=== PATIENT | male | born 1990 | race Caucasian/White ===

== ENCOUNTER 2016-05-12 15:46 | Inpatient (IN) | payer OTHER ==
[~2016-05-12] VITALS: Ht 177.8 cm; Wt 93.0 kg
[2016-05-12] MEDS ORDERED: MoRPHine SULFATE 4 MG/ML 1 ML CARP\\VIAL IV STA ×2 (16:14→18:18)
[2016-05-12] MEDS ORDERED: ONDANSETRON INJ 2 MG/ML 2 ML VIAL IV STA (16:14)
[2016-05-12] MEDS ORDERED: CLINDAMYCIN 600 MG/54 ML D5W IV ONE (16:15)
[2016-05-12] MEDS ORDERED: SODIUM CHLORIDE 0.9% 1000ML 1,000 ML IV ONE (16:15)
[2016-05-12] MEDS ORDERED: CLINDAMYCIN IV 600 MG in DEXTROSE 5% ADD-VANTAGE 50ML 50 ML IV SCH (16:30)
[2016-05-12] MEDS ORDERED: OPTIRAY 320 IV PRN (16:30)
[2016-05-12 17:04] LABS: BLOOD UREA NITROGEN 17 mg/dl (7-18); BUN/CREATININE RATIO 15.8 (10-20); CALCIUM 9.8 mg/dl (8.5-10.1); CARBON DIOXIDE 25 mmol/L (21-32); CHLORIDE 102 mmol/L (98-107); GLUCOSE 104 mg/dl (70-99); SODIUM 137 mmol/L (136-145)
[2016-05-12 17:19] LABS: BASO % 0.2 %; BASO ABS # 0.02 K/uL (0-0.2); COMPLETE YES; EOS % 0.2 %; HEMATOCRIT 41.6 % (42-52); IG% 0.3 %; LYMPH % 13.9 %; LYMPH ABS # 1.42 K/uL (1.2-3.4); MEAN CELL VOLUME 82.2 fL (80-100); MEAN CORPUSCULAR HEMOGLOBIN 29.2 pg (25-34); MEAN CORPUSCULAR HGB CONC 35.6 g/dl (32-36); MEAN PLATELET VOLUME 9.2 fL (7.4-10.4); MONO % 10.2 %; NEUT % 75.2 %; PLATELET COUNT 333 K/uL (130-400); RED BLOOD COUNT 5.06 M/uL (4.7-6.1); WHITE BLOOD COUNT 10.18 K/uL (4.8-10.8)
--- NOTE | 2016-05-12 18:00 | DIAGNOSTIC IMAGING REPORT ---
CT FACIAL-MAXILLOFACIAL WITH CT DOSE: 748.72 mGy.cm CLINICAL HISTORY: Dental pain. Fever. TECHNIQUE: Helical axial images of the face were obtained following intravenous injection of 116 cc of Optiray 320 IV. Sagittal and coronal reconstructions were reviewed as well as maximal intensity projections on an independent 3-D workstation. COMPARISON STUDY: None. FINDINGS: Visualized portions of the intracranial contents are unremarkable. The epiglottis is normal. There are several mildly enlarged right-sided cervical lymph nodes. An index right level 1 Lymph node measures 1.2 cm in short axis diameter. There is right anterior facial infiltration. Note is made of a cavity of the right maxillary canine (ADA tooth 6). There is an associated small peripherally enhancing collection that measures 1.2 x 0.5 cm along the right anterior aspect of the maxilla and system with an abscess. In addition, there is lucency within the adjacent alveolar ridge of the right anterior aspect of the maxilla with apparent bony erosion into the right maxillary sinus. There is peripheral enhancement within the right maxillary sinus which is nearly completely opacified. There is also moderate mucosal thickening of the right ethmoid and frontal sinuses and mild mucosal thickening of the right sphenoid sinus. Orbits are unremarkable. Major vasculature of the neck the neck is patent. IMPRESSION: Cavity of the right maxillary canine with associated 1.2 cm x 0.5 cm abscess along the right anterior aspect of the maxilla with associated cellulitis. In addition, erosion possibly reflecting osteomyelitis of the adjacent alveolar ridge with extension into the right maxillary sinus which is largely opacified with peripheral enhancement. The findings suggest extension of the infectious process into the right maxillary sinus which is largely opacified. In addition, there is moderate mucosal thickening of the right ethmoid and frontal sinuses. Electronically signed by: Cleveland Cifuentes M.D. 05/12/2016 5:57 PM Dictated Date/Time: 05/12/2016 5:44 PM
--- NOTE | 2016-05-12 19:17 | EMERGENCY ROOM VISIT NOTE ---
ED Visit Note First contact with patient: 15:53 Chief Complaint: Infected tooth. History of Present Illness: Mr. Lezama is a 25-year-old white male who ambulates into the ED accompanied by his mother complaining of a possible dental infection. Historically patient reports he has a redundant right maxillary cuspid tooth. Intermittently over many years C reports she developed pain and possible infection in the area. He is typically seen and prescribed antibiotics and pain goes away. He reports he does not follow-up with dentistry for definitive care and treatment. Patient goes on reports that he started experiencing right maxillary dental pain approximately 1.5 weeks ago. Since that time his pain has been constant and gradually increasing in intensity. He describes the pain as a sharp and pressure sensation. He rates his discomfort 8/10. He reports radiation of this pain up into the right maxillary sinus and into the right side of his head. He has not identified any aggravating or alleviating factors related to the pain. He has been using [id number] ibuprofen and acetaminophen every 4 hours without relief of his discomfort and he also reports he has been using penicillin that was given tone for his last infection without relief of his discomfort. Associated with his pain last night he noted some mild blurry vision, tearing from the right eye, sensations of feeling feverish last night that was associated with chills and sweats. He denies dizziness, lightheadedness, hearing changes, sore throat, difficulty swallowing, voice changes, neck pain/stiffness, chest pain, shortness of breath , abdominal pain, decreased appetite, nausea, vomiting, facial swelling. Review of Systems: As noted above in history of present illness. All body systems were reviewed and found to be negative as noted above. Past Medical History: As previously noted. Current Medications: Patient denies. Allergies to Medications: Patient denies. Patient denies. Social History: Patient is not currently employed; he feels safe in his home environment; he admits to tobacco and alcohol use. Physical Examination: Vital Signs: Date Time Temp Pulse Resp B/P Pulse Ox O2 Delivery O2 Flow Rate FiO2 05/12/16 18:10 85 18 125/73 100 Room Air 05/12/16 15:50 36.9 98 18 114/80 98 Room Air GENERAL: 25-year-old male in moderate distress due to pain, nontoxic-appearing, afebrile and hemodynamically stable. NEUROLOGICAL: Awake, alert and oriented to person, place and time. Answering questions appropriately and following commands. Normal gait. Good hand eye coordination. No focal motor sensory deficits. Cranial nerves II through XII grossly intact. Good short-term and long-term recall. Normal rapid movements of the hand. Negative pronator drift test. SKIN: Warm, dry and pink. No facial soft tissue eruptions or trauma noted. HEENT: Atraumatic and normocephalic. No facial swelling noted. Moderate tenderness over the right maxillary sinus without erythema or edema. External ears are nontender. Auditory canals are pink and patent. Tympanic membranes are pearly urena with normal light reflex. PERRLA. EOMI without nystagmus. No light sensitivity. Sclera white and conjunctiva pink without drainage. No drainage from naris. Oral cavity moist and pink. Orally patient does have a redundant tooth as noted previously. 3 of the teeth in this area are discolored without significant signs of decay. There is local gingiva is mildly erythematous and edematous. There is no palpable abscesses. Pharynx is nonerythematous or edematous. Speech normal. No lymphadenopathy. Trachea midline. No jugular venous distention. BACK: No tenderness over the bony spine. Full range of motion of the cervical spine. THORAX: Lungs sounds are clear to auscultation and equal bilaterally with symmetrical chest wall. No wheezing, rales or rhonchi. No crepitus, tenderness , subcutaneous air or deformities noted. HEART: Regular rate and rhythm. No gallops, rubs or murmurs are appreciated. ABDOMEN: Flat, soft and nontender. Positive bowel sounds in all quadrants. No guarding, rigidity or organomegaly. EXTREMITIES: Moves all extremities well on command and with purpose. All distal neurovascular statuses are intact and equal bilaterally. ED Course: Patient is assessed as noted above. Laboratory Testing: Test 05/12/16 16:40 05/12/16 17:11 Range/Units Sodium Level 137 136-145 mmol/L Potassium Level 4.0 3.5-5.1 mmol/L Chloride Level 102 98-107 mmol/L Carbon Dioxide Level 25 21-32 mmol/L Anion Gap 10.0 3-11 mmol/L Blood Urea Nitrogen 17 7-18 mg/dl Creatinine 1.10 0.60-1.40 mg/dl Estimated GFR () 106.1 Estimated GFR (Non- 91.5 BUN/Creatinine Ratio 15.8 10-20 Random Glucose 104 70-99 mg/dl Calcium Level 9.8 8.5-10.1 mg/dl White Blood Count 10.18 4.8-10.8 K/uL Red Blood Count 5.06 4.7-6.1 M/uL Hemoglobin 14.8 14.0-18.0 g/dL Hematocrit 41.6 42-52 % Mean Corpuscular Volume 82.2 80-100 fL Mean Corpuscular Hemoglobin 29.2 25-34 pg Mean Corpuscular Hemoglobin Concent 35.6 32-36 g/dl Platelet Count 333 130-400 K/uL Mean Platelet Volume 9.2 7.4-10.4 fL Neutrophils (%) (Auto) 75.2 % Lymphocytes (%) (Auto) 13.9 % Monocytes (%) (Auto) 10.2 % Eosinophils (%) (Auto) 0.2 % Basophils (%) (Auto) 0.2 % Neutrophils # (Auto) 7.65 1.4-6.5 K/uL Lymphocytes # (Auto) 1.42 1.2-3.4 K/uL Monocytes # (Auto) 1.04 0.11-0.59 K/uL Eosinophils # (Auto) 0.02 0-0.5 K/uL Basophils # (Auto) 0.02 0-0.2 K/uL RDW Standard Deviation 38.6 36.4-46.3 fL RDW Coefficient of Variation 12.8 11.5-14.5 % Immature Granulocyte % (Auto) 0.3 % Immature Granulocyte # (Auto) 0.03 0.00-0.02 K/uL IV Contrast Facial CT: Was reviewed by myself and read by the radiologist and shows cavity of the right maxillary canine with associated abscess and cellulitis. Additionally noted that there are road and reflecting of probable osteomyelitis of the adjacent alveoli ridge with extension into the right maxillary sinus. Additionally there was moderate mucosal thickening of the right ethmoid and frontal sinuses. Patient was hydrated with normal saline, he received a total of 8 mg of morphine IV for pain, 4 mg of Zofran IV and 600 mg of clindamycin IV for his symptoms. Patient was reassessed multiple times during his stay in the emergency department. Patient's case was reviewed with Dr. Jarquin; we agreed on diagnostic approach, treatment, disposition and plan. Patient's case was consulted with case management and Dr. Gonsalez, hospitalist, for medical observation/admission. Patient was educated about tonight's findings; he agreed to be brought in the hospital for observation/admission. Clinical Impression: Dental abscess with possible osteomyelitis. Decision-Making: Initially my differential diagnosis I consider dental abscess, dental cavity, gingivitis, sinusitis, otitis media, otitis externa and other causes. Disposition and Plan: Patient be brought in the hospital for observation/ admission by Dr. Gonsalez; please see his notes and orders for final disposition and plan.
[2016-05-12] MEDS ORDERED: MoRPHine SULFATE 2 MG/ML CARP IV PRN (19:45)
[2016-05-12] MEDS ORDERED: ONDANSETRON INJ 2 MG/ML 2 ML VIAL IV PRN (19:45)
[2016-05-12 20:00] VITALS: O2SAT 99
--- NOTE | 2016-05-12 20:14 | Medical Student: [facility] ---
Med Student History & Physical Date & Time of Service: May 12, 2016 at 19:54 Chief Complaint: Infected Tooth Primary Care Physician: No Doctor, Assigned History of Present Illness Source: patient Oz Lezama is a 25 year old male with a history of recurrent dental infections who presented to the ED today for two weeks of gradually worsening upper R dental pain and R maxillary pain. He took some of his friend's leftover penicillin twice daily for 3 days with the last dose 4-5 days ago, as well as some of his friend's Percocet for the pain. Last night he started feeling feverish and had sweats, which prompted him to come to the ED. He states he has required Abx for dental infections multiple times in the past. 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 He has not been tested for HIV or Hepatitis. Social History Smoking Status: Current Every Day Smoker Smokeless Tobacco Use: Yes (Former chewing tobacco use, no current use. ) Drug Use: heroin Marital Status: single Housing status: lives with family Occupational Status: unemployed Allergies Coded Allergies: No Known Allergies (Unverified , 09/13/15) Medications No Active Prescriptions or Reported Meds Review of Systems He denies any ear pain, throat pain, rash, chest pain, dyspnea, nausea, vomiting , abd pain, or diarrhea. 10 point ROS reviewed and otherwise negative except as per HPI. Physical Exam Vital Signs (24 Hours) Date Time Temp Pulse Resp B/P Pulse Ox O2 Delivery O2 Flow Rate FiO2 05/12/16 18:10 85 18 125/73 100 Room Air 05/12/16 15:50 36.9 98 18 114/80 98 Room Air General Appearance: WD/WN, + mild distress Head: normocephalic, atraumatic Eyes: PERRL, EOMI, sclerae normal ENT: TMs normal, pharynx normal, + pertinent finding (Overall poor dentition. Redundant R maxillary tooth as well as adjacent R maxillary tooth with black dental carries. The teeth and gums are tender to palpation and appear erythematous. No obvious fluctuance. R maxillary sinus is tender to palpation, but again no obvious fluctuance. R maxillary area is warm to the touch compared to the L. ) Neck: supple, trachea midline Respiratory/Chest: lungs clear, normal breath sounds, no respiratory distress, no accessory muscle use Cardiovascular: regular rate, rhythm, no gallop, no murmur, normal peripheral pulses Abdomen/GI: non tender, soft Neurologic/Psych: groover runner II-XII nml as tested, no motor/sensory deficits, alert, normal mood/affect, normal reflexes, oriented x 3 Skin: normal color, warm/dry, no rash Diagnostics Laboratory Results Results Past 24 Hours Test 05/12/16 16:40 05/12/16 17:11 Range/Units Sodium Level 137 136-145 mmol/L Potassium Level 4.0 3.5-5.1 mmol/L Chloride Level 102 98-107 mmol/L Carbon Dioxide Level 25 21-32 mmol/L Anion Gap 10.0 3-11 mmol/L Blood Urea Nitrogen 17 7-18 mg/dl Creatinine 1.10 0.60-1.40 mg/dl Estimated GFR () 106.1 Estimated GFR (Non- 91.5 BUN/Creatinine Ratio 15.8 10-20 Random Glucose 104 70-99 mg/dl Calcium Level 9.8 8.5-10.1 mg/dl White Blood Count 10.18 4.8-10.8 K/uL Red Blood Count 5.06 4.7-6.1 M/uL Hemoglobin 14.8 14.0-18.0 g/dL Hematocrit 41.6 42-52 % Mean Corpuscular Volume 82.2 80-100 fL Mean Corpuscular Hemoglobin 29.2 25-34 pg Mean Corpuscular Hemoglobin Concent 35.6 32-36 g/dl Platelet Count 333 130-400 K/uL Mean Platelet Volume 9.2 7.4-10.4 fL Neutrophils (%) (Auto) 75.2 % Lymphocytes (%) (Auto) 13.9 % Monocytes (%) (Auto) 10.2 % Eosinophils (%) (Auto) 0.2 % Basophils (%) (Auto) 0.2 % Neutrophils # (Auto) 7.65 1.4-6.5 K/uL Lymphocytes # (Auto) 1.42 1.2-3.4 K/uL Monocytes # (Auto) 1.04 0.11-0.59 K/uL Eosinophils # (Auto) 0.02 0-0.5 K/uL Basophils # (Auto) 0.02 0-0.2 K/uL RDW Standard Deviation 38.6 36.4-46.3 fL RDW Coefficient of Variation 12.8 11.5-14.5 % Immature Granulocyte % (Auto) 0.3 % Immature Granulocyte # (Auto) 0.03 0.00-0.02 K/uL Diagnostic Radiology CT FACIAL-MAXILLOFACIAL WITH CT DOSE: 748.72 mGy.cm CLINICAL HISTORY: Dental pain. Fever. TECHNIQUE: Helical axial images of the face were obtained following intravenous injection of 116 cc of Optiray 320 IV. Sagittal and coronal reconstructions were reviewed as well as maximal intensity projections on an independent 3-D workstation. COMPARISON STUDY: None. FINDINGS: Visualized portions of the intracranial contents are unremarkable. The epiglottis is normal. There are several mildly enlarged right-sided cervical lymph nodes. An index right level 1 Lymph node measures 1.2 cm in short axis diameter. There is right anterior facial infiltration. Note is made of a cavity of the right maxillary canine (ADA tooth 6). There is an associated small peripherally enhancing collection that measures 1.2 x 0.5 cm along the right anterior aspect of the maxilla and system with an abscess. In addition, there is lucency within the adjacent alveolar ridge of the right anterior aspect of the maxilla with apparent bony erosion into the right maxillary sinus. There is peripheral enhancement within the right maxillary sinus which is nearly completely opacified. There is also moderate mucosal thickening of the right ethmoid and frontal sinuses and mild mucosal thickening of the right sphenoid sinus. Orbits are unremarkable. Major vasculature of the neck the neck is patent. IMPRESSION: Cavity of the right maxillary canine with associated 1.2 cm x 0.5 cm abscess along the right anterior aspect of the maxilla with associated cellulitis. In addition, erosion possibly reflecting osteomyelitis of the adjacent alveolar ridge with extension into the right maxillary sinus which is largely opacified with peripheral enhancement. The findings suggest extension of the infectious process into the right maxillary sinus which is largely opacified. In addition, there is moderate mucosal thickening of the right ethmoid and frontal sinuses. Electronically signed by: Cleveland Cifuentes M.D. 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 He is afebrile here with no leukocytosis. BP is stable. Pt received one dose of IV clindamycin in the ED. - Will continue IV clindamycin and add IV ampicillin-sulbactam for increased anaerobic coverage. - Will consult oral surgery regarding possible surgical drainage. - Continue morphine 4 mg q4h prn for pain as well as Tylenol - Continue Zofran prn for nausea. - Pt can eat tonight, but NPO after midnight in case surgery tomorrow. - Will consider HIV and hepatitis testing while the pt is admitted.
[2016-05-12 20:26] VITALS: BP 122/79; PULSE 88; TEMP 36.8; Ht 177.8 cm; Wt 93.0 kg
--- NOTE | 2016-05-12 20:27 | History and Physical ---
History & Physical Date & Time of Service: May 12, 2016 at 20:15 Chief Complaint: Infected Tooth Primary Care Physician: No Doctor, Assigned History of Present Illness Source: patient, hospital records 25 year old male with a history of recurrent dental infections who presented to the ED today for two weeks of gradually worsening upper R dental pain and R maxillary pain. He took some of his friend's leftover penicillin twice daily for 3 days with the last dose 4-5 days ago, as well as some of his friend's Percocet for the pain. Last night he started feeling feverish and had sweats, which prompted him to come to the ED. He states he has required Abx for dental infections multiple times in the past. He has been recommended to follow up in the past for dental infections and possible tooth extraction but never followed up. He denies any rashes, chest pain, shortness of breath. Currently feels much better in terms of pain after two dose of Morphine 4mg in the ED. He received a dose of Clindamycin 600mg IV. Discussed admission to hospital and consultation with oral surgeon, he is on board with plan. Past Medical/Surgical History Current IV heroin abuse, most recent injection was this morning H/o recurrent tooth infections that have cleared with oral antibiotics Family History no reported family history, reviewed Social History Smoking Status: Current Every Day Smoker Smokeless Tobacco Use: No (used to chew) Drug Use: heroin (last used today) Marital Status: single Housing status: lives with family Occupational Status: unemployed Multi-Drug Resistant Organisms History of MDRO: No Allergies Coded Allergies: No Known Allergies (Unverified , 09/13/15) Home Medications No Active Prescriptions or Reported Meds Review of Systems Constitutional: + chills, + fever, + sweats, No fatigue, No weakness, No weight loss Eyes: No diplopia, No discharge, No eye pain, No problem reported, No redness, No worsening of vision ENT: + dental problems (multiple caries, currently with severe pain over right maxillary canine, swelling, redness), No hearing loss, No nasal symptoms, No sore throat, No tinnitus, No trouble swallowing, No unusual epistaxis Respiratory: No cough, No dyspnea at rest, No dyspnea on exertion, No hemoptysis, No problem reported, No shortness of breath, No sputum, No wheezing Cardiovascular: No PND, No chest pain, No claudication, No edema, No orthopnea , No palpitations, No problem reported Abdomen: No GI bleeding, No constipation, No diarrhea, No nausea, No pain, No problem reported, No vomiting Musculoskeletal: No calf pain, No joint pain, No muscle pain, No problem reported, No swelling Genitourinary - Male: No dysuria, No hematuria, No urinary frequency, No urinary urgency Neurologic: No balance problems, No memory loss, No numbness/tingling, No paralysis, No problem reported, No vertigo, No weakness Psychiatric: No anhedonism, No anxiety, No depression symptoms, No insomnia, No problem reported, No substance abuse Endocrine: No excessive thirst, No excessive urination, No fatigue, No problem reported Hematologic / Lymphatic: No abnormal bleeding/bruising, No clotting problems, No night sweats, No problem reported, No swollen lymph nodes Integumentary: No bleeding, No color change, No itch, No new/changing skin lesions, No problem reported, No rash Allergic / Immunologic: No environmental allergies, No food allergies, No frequent infections, No hives, No pet sensitivities, No poor healing, No problem reported, No prolonged convalescence, No seasonal allergies Physical Exam Vital Signs Date Time Temp Pulse Resp B/P Pulse Ox O2 Delivery O2 Flow Rate FiO2 05/12/16 20:00 79 18 124/83 99 05/12/16 18:10 85 18 125/73 100 Room Air 05/12/16 15:50 36.9 98 18 114/80 98 Room Air General Appearance: WD/WN, no apparent distress Head: normocephalic, atraumatic Eyes: normal inspection, PERRL, EOMI, sclerae normal ENT: hearing grossly normal, TMs normal, pharynx normal, + pertinent finding ( right maxillary canine, failure to completely descend, obvious caries with swelling of gums, redness, tenderness) Neck: supple, no adenopathy, no JVD, trachea midline Respiratory/Chest: chest non-tender, lungs clear, normal breath sounds, no respiratory distress, no accessory muscle use Cardiovascular: regular rate, rhythm, no edema, no gallop, no JVD, no murmur, normal peripheral pulses Abdomen/GI: normal bowel sounds, non tender, soft, no organomegaly Back: normal inspection, no CVA tenderness, no muscle spasm, normal range of motion Extremities/Musculoskelatal: normal inspection, no calf tenderness, normal capillary refill, no pedal edema, normal range of motion Neurologic/Psych: connie cleaner II-XII nml as tested, no motor/sensory deficits, alert, normal mood/affect, normal reflexes, oriented x 3 Skin: normal color, warm/dry, + pertinent finding (numerous track locke on arms ) Lymphatic: no adenopathy Diagnostics Laboratory Results Results Past 24 Hours Test 05/12/16 16:40 05/12/16 17:11 Range/Units Sodium Level 137 136-145 mmol/L Potassium Level 4.0 3.5-5.1 mmol/L Chloride Level 102 98-107 mmol/L Carbon Dioxide Level 25 21-32 mmol/L Anion Gap 10.0 3-11 mmol/L Blood Urea Nitrogen 17 7-18 mg/dl Creatinine 1.10 0.60-1.40 mg/dl Estimated GFR () 106.1 Estimated GFR (Non- 91.5 BUN/Creatinine Ratio 15.8 10-20 Random Glucose 104 70-99 mg/dl Calcium Level 9.8 8.5-10.1 mg/dl White Blood Count 10.18 4.8-10.8 K/uL Red Blood Count 5.06 4.7-6.1 M/uL Hemoglobin 14.8 14.0-18.0 g/dL Hematocrit 41.6 42-52 % Mean Corpuscular Volume 82.2 80-100 fL Mean Corpuscular Hemoglobin 29.2 25-34 pg Mean Corpuscular Hemoglobin Concent 35.6 32-36 g/dl Platelet Count 333 130-400 K/uL Mean Platelet Volume 9.2 7.4-10.4 fL Neutrophils (%) (Auto) 75.2 % Lymphocytes (%) (Auto) 13.9 % Monocytes (%) (Auto) 10.2 % Eosinophils (%) (Auto) 0.2 % Basophils (%) (Auto) 0.2 % Neutrophils # (Auto) 7.65 1.4-6.5 K/uL Lymphocytes # (Auto) 1.42 1.2-3.4 K/uL Monocytes # (Auto) 1.04 0.11-0.59 K/uL Eosinophils # (Auto) 0.02 0-0.5 K/uL Basophils # (Auto) 0.02 0-0.2 K/uL RDW Standard Deviation 38.6 36.4-46.3 fL RDW Coefficient of Variation 12.8 11.5-14.5 % Immature Granulocyte % (Auto) 0.3 % Immature Granulocyte # (Auto) 0.03 0.00-0.02 K/uL Diagnostic Radiology CT FACIAL-MAXILLOFACIAL WITH CLINICAL HISTORY: Dental pain. Fever. FINDINGS: Visualized portions of the intracranial contents are unremarkable. The epiglottis is normal. There are several mildly enlarged right-sided cervical lymph nodes. An index right level 1 Lymph node measures 1.2 cm in short axis diameter. There is right anterior facial infiltration. Note is made of a cavity of the right maxillary canine (ADA tooth 6). There is an associated small peripherally enhancing collection that measures 1.2 x 0.5 cm along the right anterior aspect of the maxilla and system with an abscess. In addition, there is lucency within the adjacent alveolar ridge of the right anterior aspect of the maxilla with apparent bony erosion into the right maxillary sinus. There is peripheral enhancement within the right maxillary sinus which is nearly completely opacified. There is also moderate mucosal thickening of the right ethmoid and frontal sinuses and mild mucosal thickening of the right sphenoid sinus. Orbits are unremarkable. Major vasculature of the neck the neck is patent. IMPRESSION: Cavity of the right maxillary canine with associated 1.2 cm x 0.5 cm abscess along the right anterior aspect of the maxilla with associated cellulitis. In addition, erosion possibly reflecting osteomyelitis of the adjacent alveolar ridge with extension into the right maxillary sinus which is largely opacified with peripheral enhancement. The findings suggest extension of the infectious process into the right maxillary sinus which is largely opacified. In addition, there is moderate mucosal thickening of the right ethmoid and frontal sinuses. Impression Assessment and Plan 25 yo male IV Heroin user who presents with right maxillary abscess of tooth with associated cellulitis, possible osteomyelitis - Right maxillary tooth abscess with cellulitis and possible osteomyelitis Clindamycin and Unasyn IV, check blood cultures (were done after he received Clindamycin in ED) consult oral surgery for recommendations of surgery vs just IV antibiotics Morphine for pain control, Tylenol for fevers allow to eat, NPO after midnight - Heroin abuse: has never been tested for HIV or hepatitis in the past, not interested currently counseled on importance of stopping, has been to rehab in the past started using again due to stressful family situation Level of Care Med/Surg Resuscitation Status FULL RESUSCITATION VTE Prophylaxis VTE Risk Assessment Done? Y/N: Yes Risk Level: Low Given or contraindicated: Treatment not indicated
[2016-05-12] MEDS: ACETAMINOPHEN 325 MG TAB PO PRN (21:09)
[2016-05-12] MEDS: AMPICILLIN/SULBACTAM SOD INJ 3,000 MG in SODIUM CHLORIDE 0.9% 100ML 100 ML IV SCH (21:16)
[2016-05-12] MEDS: MoRPHine SULFATE 4 MG/ML 1 ML CARP\\VIAL IV PRN (22:34)
[2016-05-12 23:15] VITALS: BP 103/64; PULSE 90; TEMP 36.6; O2SAT 97
[2016-05-13] MEDS: CLINDAMYCIN IV 900 MG in DEXTROSE 5% ADD-VANTAGE 100ML 100 ML IV SCH ×3 (01:54→17:06)
[2016-05-13] MEDS: AMPICILLIN/SULBACTAM SOD INJ 3,000 MG in SODIUM CHLORIDE 0.9% 100ML 100 ML IV SCH ×3 (03:50→15:20)
[2016-05-13] MEDS: MoRPHine SULFATE 4 MG/ML 1 ML CARP\\VIAL IV PRN ×3 (03:55→12:26)
[2016-05-13 06:07] LABS: BASO % 0.4 %; BASO ABS # 0.03 K/uL (0-0.2); COMPLETE YES; EOS % 2.6 %; HEMATOCRIT 36.1 % (42-52); IG% 0.1 %; LYMPH % 23.6 %; LYMPH ABS # 1.81 K/uL (1.2-3.4); MEAN CELL VOLUME 82.6 fL (80-100); MEAN CORPUSCULAR HEMOGLOBIN 28.8 pg (25-34); MEAN CORPUSCULAR HGB CONC 34.9 g/dl (32-36); MEAN PLATELET VOLUME 9.3 fL (7.4-10.4); MONO % 14.3 %; PLATELET COUNT 279 K/uL (130-400); RED BLOOD COUNT 4.37 M/uL (4.7-6.1); WHITE BLOOD COUNT 7.67 K/uL (4.8-10.8)
[2016-05-13 06:34] LABS: BUN/CREATININE RATIO 18.9 (10-20); CALCIUM 8.7 mg/dl (8.5-10.1); CREATININE 0.93 mg/dl (0.60-1.40); POTASSIUM 4.2 mmol/L (3.5-5.1)
[2016-05-13] MEDS: ACETAMINOPHEN 325 MG TAB PO PRN ×2 (07:44→12:27)
[2016-05-13 07:45] VITALS: BP 112/73; PULSE 85; TEMP 36.6; O2SAT 98
[2016-05-13] MEDS ORDERED: HYDROmorphone INJ 1 MG/ML SYR IV PRN (12:45)
[2016-05-13] MEDS ORDERED: HYDROmorphone INJ 0.5 MG/0.5 ML SYR IV PRN (12:45)
[2016-05-13] MEDS ORDERED: HYDROmorphone INJ 0.5 MG/0.5 ML SYR IV STA (12:45)
--- NOTE | 2016-05-13 14:52 | Progress Note ---
Subjective Date of Service: May 13, 2016. Subjective pt has pain and redness near additional tooth in right upper mandible. concern for abscess and possible osteomyelitis Review of Systems Constitutional: + fatigue, + weakness, No chills, No fever ENT: + dental problems (gingival erythema and tenderness upper mandible on right) Respiratory: No cough, No shortness of breath Cardiac: No chest pain, No edema Abdomen: No diarrhea, No nausea, No pain, No vomiting Psychiatric: No anhedonism, No depression symptoms Objective Vital Signs Date Time Temp Pulse Resp B/P Pulse Ox O2 Delivery O2 Flow Rate FiO2 05/12/16 23:48 Room Air 05/12/16 23:15 36.6 90 18 103/64 97 Room Air 05/12/16 22:28 Room Air 05/12/16 20:26 36.8 88 16 122/79 Room Air 05/12/16 20:00 79 18 124/83 99 05/12/16 18:10 85 18 125/73 100 Room Air 05/12/16 15:50 36.9 98 18 114/80 98 Room Air Physical Exam General Appearance: WD/WN, + moderate distress ENT: + pertinent finding (periodontal infection) Neck: supple, no JVD Respiratory/Chest: chest non-tender, lungs clear, normal breath sounds Cardiovascular: regular rate, rhythm, no murmur Abdomen: normal bowel sounds, non tender, soft Neurologic/Psychiatric: alert, oriented x 3 Laboratory Results Last 24 Hours Test 05/12/16 16:40 05/12/16 17:11 05/13/16 05:43 Sodium Level 137 mmol/L 138 mmol/L Potassium Level 4.0 mmol/L 4.2 mmol/L Chloride Level 102 mmol/L 103 mmol/L Carbon Dioxide Level 25 mmol/L 26 mmol/L Anion Gap 10.0 mmol/L 9.0 mmol/L Blood Urea Nitrogen 17 mg/dl 18 mg/dl Creatinine 1.10 mg/dl 0.93 mg/dl Estimated GFR () 106.1 129.9 Estimated GFR (Non- 91.5 112.1 BUN/Creatinine Ratio 15.8 18.9 Random Glucose 104 mg/dl 88 mg/dl Calcium Level 9.8 mg/dl 8.7 mg/dl White Blood Count 10.18 K/uL 7.67 K/uL Red Blood Count 5.06 M/uL 4.37 M/uL Hemoglobin 14.8 g/dL 12.6 g/dL Hematocrit 41.6 % 36.1 % Mean Corpuscular Volume 82.2 fL 82.6 fL Mean Corpuscular Hemoglobin 29.2 pg 28.8 pg Mean Corpuscular Hemoglobin Concent 35.6 g/dl 34.9 g/dl Platelet Count 333 K/uL 279 K/uL Mean Platelet Volume 9.2 fL 9.3 fL Neutrophils (%) (Auto) 75.2 % 59.0 % Lymphocytes (%) (Auto) 13.9 % 23.6 % Monocytes (%) (Auto) 10.2 % 14.3 % Eosinophils (%) (Auto) 0.2 % 2.6 % Basophils (%) (Auto) 0.2 % 0.4 % Neutrophils # (Auto) 7.65 K/uL 4.52 K/uL Lymphocytes # (Auto) 1.42 K/uL 1.81 K/uL Monocytes # (Auto) 1.04 K/uL 1.10 K/uL Eosinophils # (Auto) 0.02 K/uL 0.20 K/uL Basophils # (Auto) 0.02 K/uL 0.03 K/uL RDW Standard Deviation 38.6 fL 39.2 fL RDW Coefficient of Variation 12.8 % 12.9 % Immature Granulocyte % (Auto) 0.3 % 0.1 % Immature Granulocyte # (Auto) 0.03 K/uL 0.01 K/uL Est Creatinine Clear Calc Drug Dose 136.7 ml/min Assessment and Plan 25 yo male IV Heroin with right maxillary abscess of tooth, possible osteomyelitis - Right maxillary tooth abscess with cellulitis and possible osteomyelitis Clindamycin and Unasyn IV, consult oral surgery for evaluation dialudid for pain control, Tylenol for fevers - Heroin abuse: has never been tested for HIV or hepatitis in the past, Admitting team states he is not interested currently they counseled him on the importance of stopping.
[2016-05-13 14:57] VITALS: BP 143/77; PULSE 77; TEMP 36.8; O2SAT 96
[2016-05-13] MEDS ORDERED: AMOX875T PO (16:04)
--- NOTE | 2016-05-13 16:06 | Discharge Instructions ---
Discharge Instructions Admission Reason for Admission: Acute Osteomyelitis Of Maxilla Discharge Discharge Diagnosis / Problem: dental abscess Discharge Goals Goal(s): Diagnostic testing, Therapeutic intervention Activity Recommendations Activity Limitations: resume your previous activity . Instructions / Follow-Up Instructions / Follow-Up Dr Winters and Dr Land will be calling to extract your tooth before the weekend [phone] consider soft foods, tylenol or ibuprofen for pain Current Hospital Diet Patient's current hospital diet: Regular Diet Discharge Diet Recommended Diet: Regular Diet Pending Studies Studies pending at discharge: yes List of pending studies: blood cultures Medical Emergencies . Who to Call and When: Medical Emergencies: If at any time you feel your situation is an emergency, please call 911 immediately. . Non-Emergent Contact Non-Emergency issues call your: Specialist (oral surgeon) . . "Provider Documentation" section prepared by Wallace Solorio. VTE Core Measure Inpt VTE Proph given/why not?: Treatment not indicated
[2016-05-13] MEDS ORDERED: OXYC7.5T65 PO (17:43)
[2016-05-13 18:40] VITALS: BP 143/77; PULSE 77; TEMP 36.8; O2SAT 96
--- NOTE | 2016-05-15 14:26 | Discharge Summary ---
Discharge Summary Admission Date: May 12, 2016 at 19:41 Discharge Date: May 13, 2016 Discharge Disposition: Home Principal Diagnosis: periodontal abscess Medication Reconciliation New Medications: Amoxicillin & Pot Clavulanate (Augmentin 875-125 mg) 1 Tab Tab 875 MG PO BID, #20 TAB Oxycodone/Acetaminophen 7.5MG/325MG (Percocet 7.5MG/325MG) Tab 1 TAB PO Q4H PRN for Pain, #20 TAB Discharge Exam Review of Systems: Constitutional: + weakness, No chills, No fever ENT: + dental problems Respiratory: No cough, No sputum Cardiovascular: No chest pain, No orthopnea Abdomen: No nausea, No pain Musculoskeletal: No joint pain, No muscle pain Physical Exam: General Appearance: WD/WN, + mild distress Eyes: PERRL, EOMI ENT: + pertinent finding (has accessory tooth in right upper maxilla just posterior to canine, some gum redness and swelling) Respiratory/Chest: chest non-tender, lungs clear, normal breath sounds Cardiovascular: regular rate, rhythm, no murmur Hospital Course 25 yo male IV Heroin with right maxillary abscess of tooth, - Right maxillary tooth abscess with cellulitis and possible osteomyelitis Clindamycin and Unasyn IV, improved, I discussed the case with Dr Winters, who reviewed the films from his office, he will be kind enough to have pt come to office for tooth extraction and abscess drainage - Heroin abuse: has never been tested for HIV or hepatitis in the past, Admitting team states he is not interested currently they counseled him on the importance of stopping. Total Time Spent: Greater than 30 minutes This includes examination of the patient, discharge planning, medication reconciliation, and communication with other providers. Discharge Instructions Please refer to the electronic Patient Visit Report (Discharge Instructions) for additional information.
== END 2016-05-13 19:00 | disposition home or self-care (01) | DRG 158 ==
LOC: ENRESERVTM → ENRESERVDT → C.EDB 15:47 → EEVIPCON 19:41 → C.3E 19:41
PROVIDERS: ADMIT Internal Medicine; ATTEND Internal Medicine
DX: K04.7 Periapical abscess without sinus (principal); K12.2 Cellulitis and abscess of mouth; M27.2 Inflammatory conditions of jaws; F11.10 Opioid abuse, uncomplicated; F17.210 Nicotine dependence, cigarettes, uncomplicated

== ENCOUNTER 2016-12-11 08:49 | Emergency (ER) | payer OTHER ==
[~2016-12-11] VITALS: Ht 180.3 cm; Wt 98.8 kg
[2016-12-11 08:53] VITALS: TEMP 36.8; Ht 180.3 cm; Wt 98.8 kg
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
[2016-12-11 09:33] VITALS: BP 134/80; PULSE 73; O2SAT 98
== END 2016-12-11 09:34 | disposition home or self-care (01) ==
LOC: C.EDB 08:50 → C.EDA 09:34
DX: S01.01XA Laceration without foreign body of scalp, initial encounter (principal); W20.8XXA Other cause of strike by thrown, projected or falling object, initial encounter; F17.200 Nicotine dependence, unspecified, uncomplicated